=== PATIENT | male | born 1960 ===

== ENCOUNTER 2019-02-24 12:40 | Emergency (ER) | payer OTHER ==
[~2019-02-24] VITALS: Ht 172.7 cm; Wt 88.9 kg
[~2019-02-24 12:40] MED LIST: CATAFLAM50 MG PO; GLUMETZA500 MG/BOT PO; LOTREL 5-10 MG1 CAP PO
[2019-02-24] MEDS ORDERED: JANUMET 50-5001 EACH PO (13:32)
[2019-02-24] MEDS ORDERED: GLIMEPIRIDE2 MG (13:32)
[2019-02-24] MEDS ORDERED: VOLTAREN100 GM (13:33)
[2019-02-24] MEDS ORDERED: TORADOL60 MG IM (14:35)
[2019-02-24] MEDS ORDERED: ORPHENADRI30 MG/1 M1 IJ (14:35)
[2019-02-24] MEDS ORDERED: ULTRACET PO (14:46)
== END 2019-02-24 15:00 | disposition home or self-care (01) ==
LOC: ER 12:40
DX: G89.11 Acute pain due to trauma (principal); M54.5 Low back pain

== ENCOUNTER 2019-06-20 09:53 | Emergency (ER) | payer OTHER ==
[~2019-06-20] VITALS: Ht 172.7 cm; Wt 88.9 kg
[~2019-06-20 09:53] MED LIST changes: +GLIMEPIRIDE2 MG; +JANUMET 50-5001 EACH PO; +ORPHENADRI30 MG/1 M1 IJ; +TORADOL60 MG IM; +ULTRACET PO; +VOLTAREN100 GM
[2019-06-20] MEDS ORDERED: LEVAQUIN750 MG PO (14:52)
[2019-06-20] MEDS ORDERED: ULTRACET PO (14:52)
[2019-06-20] MEDS ORDERED: INTESTINEX680 M1 PO (14:52)
== END 2019-06-20 17:35 | disposition home or self-care (01) ==
LOC: ER 09:53
DX: N41.8 Other inflammatory diseases of prostate (principal)